=== PATIENT | female | born 2005 | race Caucasian/White ===

== ENCOUNTER 2024-12-09 07:42 | Day surgery (SDC) | payer BC, OTHER ==
[~2024-12-09] VITALS: Ht 177.8 cm; Wt 73.0 kg
[2024-12-09] MEDS ORDERED: VELIVET (08:06)
[2024-12-09] MEDS ORDERED: METPHE10 (08:06)
[2024-12-09] MEDS ORDERED: Midazolam HCL 1 MG/ML 5MLVIAL ONE (08:56)
== END 2024-12-09 10:20 | disposition home or self-care (01) ==
LOC: ORSCSDS 07:42
PROVIDERS: Internal Medicine Gastroenterology
PROC: 0DJ08ZZ Inspection of Upper Intestinal Tract, Via Natural or Artificial Opening Endoscopic (ICD-10-PCS; principal; 2024-12-09 09:15)
PROC: 0DJD8ZZ Inspection of Lower Intestinal Tract, Via Natural or Artificial Opening Endoscopic (ICD-10-PCS; principal; 2024-12-09 09:15)
DX: R10.84 Generalized abdominal pain (principal); K59.04 Chronic idiopathic constipation; K62.5 Hemorrhage of anus and rectum; Z79.899 Other long term (current) drug therapy
CPT/HCPCS: J2250; J2704; J7120